=== PATIENT | female | born 1975 | race Hispanic/Latino ===

== ENCOUNTER 2023-04-05 08:20 | Emergency (ER) | payer OTHER, BC, MEDICAID, SELFPAY ==
--- NOTE | 2023-04-05 08:29 | ED.URI ---
HPI - URI/Sore Throat General Chief Complaint: Upper Respiratory Infection Stated Complaint: cough; SOB; fever Source: patient and RN notes reviewed History of Present Illness HPI Narrative: 47-year-old female presents to urgent care with complaints of a cough since yesterday. Patient states she 1st noticed it before yesterday but states it had gotten worse and is more constant. Patient reports associated low-grade fever of 100? F recently. Patient reports a sore throat and some chest soreness when she coughs. Patient states she has noticed wheezing at home. Patient states she had a COVID test yesterday which was negative. Denies any vomiting, diarrhea, ear pain, or congestion. Patient has been taking ibuprofen Tylenol. Some parts of this dictation were generated by voice recognition software and may contain typographical and/or grammatical inaccuracies. Related Data Home Medications Medication Instructions Recorded Confirmed alprazolam 1 mg tablet 1 mg PO TID PRN Anxiety 04/05/23 04/05/23 atorvastatin 20 mg tablet 20 mg PO DAILY 04/05/23 04/05/23 bupropion HCl 300 mg 24 hr tablet, 300 mg PO DAILY 04/05/23 04/05/23 extended release buspirone 30 mg tablet 30 mg PO DAILY 04/05/23 04/05/23 escitalopram oxalate 20 mg tablet 20 mg PO DAILY 04/05/23 04/05/23 ibuprofen 600 mg tablet 600 mg PO QID PRN Pain 04/05/23 04/05/23 lamotrigine 200 mg tablet 200 mg PO DAILY 04/05/23 04/05/23 oxycodone 10 mg tablet 10 mg PO QID PRN Pain 04/05/23 04/05/23 quetiapine 50 mg tablet 50 mg PO DAILY 04/05/23 04/05/23 semaglutide 0.25 mg or 0.5 mg (2 0.25 mg subcut WEEKLY 04/05/23 04/05/23 mg/3 mL) subcutaneous pen injector (Ozempic) topiramate 50 mg tablet 50 mg PO BID 04/05/23 04/05/23 Allergies Allergy/AdvReac Type Severity Reaction Status Date / Time morphine AdvReac Intermediate ITHCING Verified 04/05/23 08:25 Penicillins AdvReac Intermediate NAUSEA/VOMI Verified 04/05/23 08:25 TING Review of Systems Review of Systems: Pertinent positives and pertinent negatives per HPI. PMFSH Comments At the time of my signature, I reviewed and agree with the nursing past medical, surgical, social, and family history. There is no relevant family history pertinent to the patient complaint. Exam Narrative: GENERAL: This is a well-nourished, well-developed patient, in no apparent distress. HEAD: normocephalic, atraumatic. EYES: Sclera clear/white. Vision is grossly intact. EARS: External ears normal, auditory canals clear and without drainage, TMs normal without perforation. Hearing grossly intact. NOSE: External nose normal with no obvious nasal discharge, nares without redness, no rhinorrhea. THROAT: Mucous membranes moist, posterior pharynx clear. NECK: Neck supple, non-tender without lymphadenopathy, masses or thyromegaly. CARDIOVASCULAR: Regular rate and rhythm without murmurs, gallops, or rubs. RESPIRATORY: Clear to auscultation. Breath sounds equal bilaterally. No wheezes, rales, or rhonchi. pt has dry hacky cough often in exam room. SKIN: warm, intact with no suspicious lesions or rash, good texture and turgor. NEURO: awake, alert, and oriented to person, place and time. There were no obvious focal neurologic abnormalities. Course Course Level of Care: Express Care Visit Vital Signs Vital signs: Vital Signs Temperature 98.1 F 04/05/23 08:34 Pulse Rate 98 04/05/23 08:34 Respiratory Rate 16 04/05/23 08:34 Blood Pressure 143/85 H 04/05/23 08:34 Pulse Oximetry 98 04/05/23 08:34 Oxygen Delivery Room Air 04/05/23 08:34 Temperature 98.1 F 04/05/23 08:34 Pulse Rate 98 04/05/23 08:34 Respiratory Rate 16 04/05/23 08:34 Blood Pressure 143/85 H 04/05/23 08:34 Pulse Oximetry 98 04/05/23 08:34 Oxygen Delivery Room Air 04/05/23 08:34 Reviewed MDM - URI/Sore Throat MDM Narrative Medical decision making narrative: Take steroids as directed. May use the inhaler every 4-6 hours
[2023-04-05 08:34] VITALS: BP 143/85; PULSE 98; RESP 16; TEMP 36.7; O2SAT 98
== END 2023-04-05 08:51 | disposition home or self-care (01) ==
PROVIDERS: Emergency Provider Nurse Practitioner Family; PCP Family Medicine
DX: J40 Bronchitis, not specified as acute or chronic (principal); I48.91 Unspecified atrial fibrillation; M79.7 Fibromyalgia; M87.9 Osteonecrosis, unspecified
CPT/HCPCS: 99213; G0463

== ENCOUNTER 2024-06-21 07:22 | Outpatient (CLI) | payer OTHER, SELFPAY ==
--- NOTE | ~2024-06-21 | XR_ITS ---
EXAMINATION: XR thoracic spine 2V DATE: 06/21/2024 07:54 INDICATION: Lumbar radiculopathy. TECHNIQUE: 3 views of thoracic spine including standing views were obtained. COMPARISON: None. FINDINGS: There is 8 degrees dextrocurvature of thoracic spine. Vertebral body heights are normal. In tervertebral disc heights are normal. There are endplate osteophytes at most levels. An intrathecal c atheter is noted. IMPRESSION: 1. Mild thoracic spondylosis. Reviewed, dictated and finalized at location A.
--- NOTE | ~2024-06-21 | XR_ITS ---
EXAMINATION: XR lumbar spine 2-3V DATE: 06/21/2024 07:54 INDICATION: Lumbar radiculopathy. TECHNIQUE: 3 views of lumbar spine were obtained. COMPARISON: None. FINDINGS: There is 3 degrees levocurvature of lumbar spine. Vertebral body heights and intervertebral disc heights are normal. There is multilevel facet joint osteoarthritis, severe in lower lumbar spin e. An intrathecal catheter is noted. IMPRESSION: 1. Mild lumbar spondylosis. Reviewed, dictated and finalized at location A. IMPRESSION: 1. Mild lumbar spondylosis.
== END 2024-06-21 07:23 ==
PROVIDERS: PCP Pain Medicine Pain Medicine; Visit Provider Pain Medicine Pain Medicine
DX: M54.16 Radiculopathy, lumbar region (principal); M43.04 Spondylolysis, thoracic region; M43.06 Spondylolysis, lumbar region
CPT/HCPCS: 72070; 72100

== ENCOUNTER 2024-07-23 14:53 | Outpatient (CLI) | payer OTHER, SELFPAY ==
--- NOTE | ~2024-07-23 | XR_ITS ---
XR hip BI 2V w AP pelvis Ordering provider: Ellyn Lee, History: . Idiopathic aseptic necrosis of unspecified femur . Comparison: None. FINDINGS: BONES: No acute fracture or dislocation. Possibility of AVN in the left hip is not excluded although less likely. CT or MRI evaluation advised. HIP JOINT SPACES: Normal. SACROILIAC JOINT SPACES/LUMBAR SPINE: The sacroiliac joint spaces are normal. Mild degenerative reddy es of the visualized lower lumbar spine. PUBIC SYMPHYSIS: Normal. SOFT TISSUES: Normal. Device is seen in the left lumbar area. IMPRESSION: No acute osseous abnormality of the bilateral hips and pelvis. Possibility of AVN in the left hip cannot be excluded. Reviewed, dictated and finalized at location A.
== END 2024-07-23 14:54 | disposition home or self-care (01) ==
PROVIDERS: PCP Pain Medicine Pain Medicine; Visit Provider Physical Medicine & Rehabilitation
DX: M87.051 Idiopathic aseptic necrosis of right femur (principal); M87.052 Idiopathic aseptic necrosis of left femur
CPT/HCPCS: 73521

== ENCOUNTER 2024-08-26 14:22 | Outpatient (CLI) | payer OTHER, SELFPAY ==
--- NOTE | 2024-08-26 | ECG_ITS ---
Test Date: 2024-08-26 15:02:49 Measurements Intervals [place] Rate: 62 P: 57 ND: 144 QRS: 39 QRSD: 97 T: 35 QT: 405 QTc: 413 Interpretive Statements SINUS RHYTHM No previous ECG available for comparison Electronically Signed On 08-27-2024 09:37:38 CDT by Sandy Osborn M.D.
[2024-08-26 14:42] LABS: Basophils Absolute Auto 0.1 K/mm3 (0.0-0.1); Basophils Percent Auto 0.7 % (0.2-1.2); Eosinophils Absolute Auto 0.1 K/mm3 (0-0.3); Eosinophils Percent Auto 0.8 % (0-4.4); Hemoglobin 12.5 g/dL (12.0-15.0); Immature Granulocyte Absolute 0.01 K/mm3 (0.00-0.031); Immature Granulocyte Percent A 0.1 % (0-0.5); Lymphocytes Absolute Auto 3.11 K/mm3 (0.9-3.2); Lymphocytes Percent Auto 43.7 % (18.3-44.2); Mean Corpuscular HGB Conc 33.8 g/dl (32-36); Mean Corpuscular Hemoglobin 31.1 pg (26-34); Mean Platelet Volume 9.8 fl (7.4-10.4); Monocytes Absolute Auto 0.3 K/mm3 (0.1-0.6); Monocytes Percent Auto 4.8 % (2.6-8.5); Neutrophils Absolute Auto 3.6 K/mm3 (1.3-6.7); Neutrophils Percent Auto 49.9 % (45.5-73.1); Platelet Count Result 282 k/mm3 (150-375); Red Blood Count 4.02 M/mm3 (4.2-5.4); Red Cell Distribution Width 12.3 % (11.5-14.5); White Blood Count 7.1 K/mm3 (4.5-10.0)
[2024-08-26 14:44] LABS: Add Urine Microscopic? NO; Appearance Urine Clear (Clear); Bilirubin Urine Negative (Negative); Blood Urine Negative (Negative); Color Urine Yellow (Yellow); Glucose Urine UA Negative (Negative); Ketones Urine Trace mg/dL (Negative); Leukocyte Esterase Ur Negative LEU/UL (Negative); Nitrate Urine Negative (Negative); Protein Urine Negative (Negative); Specific Grav Ur 1.013 (1.001-1.035); Urobilinogen Urine 0.2 mg/dL (<2.0)
[2024-08-26 14:58] LABS: Alanine Aminotransferase 25 U/L (6-35); Albumin Level 4.3 g/dL (3.5-5.1); Alkaline Phosphatase 66 U/L (38-126); Anion Gap 6 mmol/L (4-12); Aspartate Amino Transferase 21 U/L (14-36); Bilirubin,Total 0.5 mg/dL (0.2-1.3); Blood Urea Nitrogen 12 mg/dL (7-17); CRP < 0.5 mg/dL (<1.0); Calcium 9.1 mg/dL (8.4-10.2); Carbon Dioxide 28 mmol/L (22-30); Chloride 103 mmol/L (98-107); Estimated Glomerular Filt Rate > 60; Glucose 109 mg/dL (65-110); Potassium 3.6 mmol/L (3.4-5.0); Sodium 137 mmol/L (137-145)
[2024-08-26 15:14] LABS: Erythrocyte Sedimentation Rate 15 mm/hr (0-20)
== END 2024-08-26 14:23 | disposition home or self-care (01) ==
LOC: ANHLAB 14:24
PROVIDERS: PCP Pain Medicine Pain Medicine; Visit Provider Anesthesiology Pain Medicine
DX: M54.50 Low back pain, unspecified (principal)
CPT/HCPCS: 36415; 80053; 81003; 85025; 85652; 86140; 93005

== ENCOUNTER 2024-11-19 11:52 | Emergency (ER) | payer OTHER, SELFPAY ==
--- NOTE | ~2024-11-19 | XR_ITS ---
XR wrist LT min 3V Ordering provider: Catrina Feldman NP History: . pain with movement to lt lateral wrist, no injury x 1-2 week . Comparison: None. FINDINGS: BONES: No acute fracture or dislocation. No definite scaphoid fracture. JOINT SPACES: Well maintained. SOFT TISSUES: Normal. IMPRESSION: No acute osseous abnormality left wrist. Reviewed, dictated and finalized at location A. UTER TECHNOLOGY TRAINER
[2024-11-19 12:03] VITALS: BP 123/82; PULSE 99; RESP 16; TEMP 37.4; O2SAT 100
--- NOTE | 2024-11-19 12:30 | ED_ITS ---
HPI - Extremity Injury (Upper) General Chief Complaint: Extremity Injury, Upper Stated Complaint: L wrist pain and sinus issues Time Seen by Provider: 11/19/24 12:30 Source: patient Mode of arrival: ambulatory Limitations: no limitations History of Present Illness HPI narrative: 49-year-old female presents with complaint of sinus congestion, pressure, postnasal drainage, sore throat, fatigue for the past 9-10 days. Afebrile. Taking pjcj-ruk-jvdrhsu medications without relief of symptoms. Also reports left wrist pain for 2 weeks. Denies injury. No numbness or tingling. Pain with movement. 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 All systems reviewed and negative except as noted above. Related Data Home Medications ?Medication ?Instructions ?Recorded ?Confirmed ?Last Taken ?Type alprazolam 1 mg tablet 1 mg PO TID PRN Anxiety 04/05/23 04/05/23 Unknown History atorvastatin 20 mg tablet 20 mg PO DAILY 04/05/23 04/05/23 Unknown History bupropion HCl 300 mg 24 hr tablet, 300 mg PO DAILY 04/05/23 04/05/23 Unknown History extended release buspirone 30 mg tablet 30 mg PO DAILY 04/05/23 04/05/23 Unknown History escitalopram oxalate 20 mg tablet 20 mg PO DAILY 04/05/23 04/05/23 Unknown History lamotrigine 200 mg tablet 200 mg PO DAILY 04/05/23 04/05/23 Unknown History oxycodone 10 mg tablet 10 mg PO QID PRN Pain 04/05/23 04/05/23 Unknown History quetiapine 50 mg tablet 50 mg PO DAILY 04/05/23 04/05/23 Unknown History semaglutide 0.25 mg or 0.5 mg (2 0.25 mg subcut WEEKLY 04/05/23 04/05/23 Unknown History mg/3 mL) subcutaneous pen injector (Ozempic) topiramate 50 mg tablet 50 mg PO BID 04/05/23 04/05/23 Unknown History Allergies Allergy/AdvReac Type Severity Reaction Status Date / Time morphine AdvReac Intermediate ITHCING Verified 11/19/24 12:21 Penicillins AdvReac Intermediate NAUSEA/VOMI Verified 11/19/24 12:21 TING Review of Systems Review of Systems: CONSTITUTIONAL: Denies fever, chills, or sweats. reports fatigue. EYES: Denies visual changes, redness, or discharge. ENT: Reports rhinorrhea, congestion, sore throat, sinus pressure. Denies otalgia. CARDIOVASCULAR: Denies chest pain, palpitations, or edema. RESPIRATORY: Denies cough or dyspnea. GASTROINTESTINAL: Denies abdominal pain, nausea, vomiting, or diarrhea. GENITOURINARY: Denies dysuria or hematuria. SKIN: Denies rash or itching. MUSCULOSKELETAL: Denies back pain, joint pain, or myalgia. Reports left wrist pain. NEUROLOGIC: Denies headache, numbness, or weakness. PSYCHIATRIC: Denies anxiety or depression. All other systems reviewed are negative, except as documented in HPI. PMFSH Comments At time of signature, agree with nursing past medical, surgical, social and family history. There is no relevant family history pertinent to the presenting complaint. Exam Narrative: GENERAL: This is a well-nourished, well-developed patient, in no apparent distress. HEAD: normocephalic, atraumatic. EYES: PERRL. Sclera clear/white. Vision is grossly intact. EARS: External ears normal, auditory canals clear and without drainage, TMs normal without perforation. Hearing grossly intact. NOSE: External nose normal with Congestion, , erythema to nares . Maxillary sinus tenderness on palpation bilaterally. THROAT: Mucous membranes moist, purulent postnasal drainage with mild erythema. No swelling or exudates. NECK: Neck supple, non-tender without lymphadenopathy, masses or thyromegaly. CARDIOVASCULAR: Regular rate and rhythm without murmurs, gallops, or rubs. RESPIRATORY: Clear to auscultation. Breath sounds equal bilaterally. No wheezes, rales, or rhonchi. SKIN: warm, Dry, intact with no suspicious lesions or rash, good texture and turgor. NEURO: awake, alert, and oriented to person, place and time. There were no obvious focal neurologic abnormalities. EXTREMITIES: No joint tenderness, effusion, or edema noted. No tenderness on palpation. Decreased range of motion due to pain. 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 Course Course Level of Care: Express Care Visit Vital Signs Vital signs: Vital Signs Temperature 37.4 C 11/19/24 12:03 Pulse Rate 99 11/19/24 12:03 Respiratory Rate 16 11/19/24 12:03 Blood Pressure 123/82 11/19/24 12:03 Pulse Oximetry 100 11/19/24 12:03 Oxygen Delivery Room Air 11/19/24 12:03 Temperature 37.4 C 11/19/24 12:03 Pulse Rate 99 11/19/24 12:03 Respiratory Rate 16 11/19/24 12:03 Blood Pressure 123/82 11/19/24 12:03 Pulse Oximetry 100 11/19/24 12:03 Oxygen Delivery Room Air 11/19/24 12:03 Reviewed MDM - Extremity Injury (Upper) MDM Narrative Medical decision making narrative: Patient is aware of diagnosis, understands and agrees to treatment plan. Anticipatory guidance given. Patient agrees to follow-up as directed and is aware of reasons to seek care at the emergency department. Portions of this record may have been created with voice recognition software Imaging Data My impression: Agree with radiologist Radiologist's impression: XR wrist LT min 3V Ordering provider: Catrina Feldman NP History: . pain with movement to lt lateral wrist, no injury x 1-2 week . Comparison: None. FINDINGS: BONES: No acute fracture or dislocation. No definite scaphoid fracture. JOINT SPACES: Well maintained. SOFT TISSUES: Normal. IMPRESSION: No acute osseous abnormality left wrist. Discharge Plan Discharge Clinical Impression: Acute bacterial sinusitis, Sprain and strain of left wrist Patient Disposition: Home, Self-Care Condition: Stable Instructions: Antibiotic Form, Sinusitis (ED) Additional Instructions: take medications as prescribed. Taking zibd-hfs-zqjwoyj antihistamine daily such as Claritin or Zyrtec. Drink at least 64 oz of water a day. Place cool mist humidifier in bedroom recently. The x-ray of your left wrist was normal. Take ibuprofen or Tylenol every 6-8 hours as needed for pain. Follow-up with your primary care physician if symptoms are not improving. Patient Language: [place] Prescriptions: New doxycycline hyclate 100 mg capsule 100 mg PO BID 7 Days Qty: 14 0RF methylprednisolone [Medrol (Tc)] 4 mg tablets,dose pack See Rx Instructions PO .COMPLEX Qty: 21 0RF Rx Instructions: orally per package directions fluticasone propionate [Flonase Allergy Relief] 50 mcg/actuation spray,suspension 1 spray intranasal BID Qty: 16 0RF Rx Instructions: administer into each nostril No Action atorvastatin 20 mg tablet 20 mg PO DAILY lamotrigine 200 mg tablet 200 mg PO DAILY alprazolam 1 mg tablet 1 mg PO TID PRN (Reason: Anxiety) buspirone 30 mg tablet 30 mg PO DAILY escitalopram oxalate 20 mg tablet 20 mg PO DAILY bupropion HCl 300 mg tablet extended release 24 hr 300 mg PO DAILY topiramate 50 mg tablet 50 mg PO BID quetiapine 50 mg tablet 50 mg PO DAILY oxycodone 10 mg tablet 10 mg PO QID PRN (Reason: Pain) Ozempic 0.25 mg or 0.5 mg (2 mg/3 mL) pen injector 0.25 mg SUBCUT WEEKLY albuterol sulfate 90 mcg/actuation HFA aerosol inhaler 2 puff inhalation QID PRN (Reason: shortness of breath or wheezing) Qty: 8.5 0RF Follow-up/Referrals: Dean,CRISTOPHER Ralph [Primary Care Provider] - Time of Disposition: 13:19
== END 2024-11-19 13:25 | disposition home or self-care (01) ==
PROVIDERS: Emergency Provider Nurse Practitioner Family; PCP Physician Assistant
DX: J01.90 Acute sinusitis, unspecified (principal); B96.89 Other specified bacterial agents as the cause of diseases classified elsewhere; S63.502A Unspecified sprain of left wrist, initial encounter; S66.912A Strain of unspecified muscle, fascia and tendon at wrist and hand level, left hand, initial encounter; X58.XXXA Exposure to other specified factors, initial encounter
CPT/HCPCS: 73110; 99213; G0463

== ENCOUNTER 2024-12-31 14:41 | Outpatient (CLI) | payer OTHER, SELFPAY ==
--- NOTE | ~2024-12-31 | MM_ITS ---
EXAMINATION: MM screening harry BI w jorge HISTORY: Screening TECHNIQUE: Craniocaudal and mediolateral oblique 3-D tomosynthesis images were obtained and synthetic 2-D images were generated. CAD analysis was submitted and interpreted. COMPARISON: No prior mammogram is available for comparison at this institution. BREAST PARENCHYMAL COMPOSITION: Not dense: There are scattered areas of fibroglandular density. FINDINGS: There is no evidence of suspicious mass, calcification, or architectural distortion to sugg est malignancy in either breast. There has been no suspicious interval change. IMPRESSION: 1. No mammographic evidence of malignancy. 2. Recommend routine screening mammography in one year. BI-RADS Category 1: Negative Reviewed, dictated and finalized at location B. MASTER
== END 2024-12-31 14:42 | disposition home or self-care (01) ==
LOC: MICIMG 14:43
PROVIDERS: PCP Physician Assistant; Visit Provider Physician Assistant
DX: Z12.31 Encounter for screening mammogram for malignant neoplasm of breast (principal)
CPT/HCPCS: 77063; 77067

== ENCOUNTER 2025-04-30 09:42 | Outpatient (CLI) | payer OTHER, SELFPAY ==
--- OUTSIDE RECORDS SUMMARY | 2025-04-30 10:08 | XMS_ITS | Patient Health Record ---
Author Organization [facility] Address [address] [place] [address] Care Team Providers Care Software Design Manager Name Role Phone Ade Avalos Primary Care Provider [phone] Allergies Allergen (clinical drug ingredient) Drug/Non Drug Allergy documented on EMR Reaction Allergy Type Onset Date Status morphine Morphine Sulfate Unknown Drug Allergy Active Penicillin Unknown Drug Allergy Active Reason For Referral No Information Medications Medication SIG (Take, Route, Frequency, Duration) Notes Start Date End Date Status Losartan Potassium 100 MG 1 tablet Orally Once a day Unknown Ozempic (2 MG/DOSE) 8 MG/3ML as directed Subcutaneous Unk nown oxyCODONE HCl 10 MG 1 tablet Orally ever y 6 hrs Unknown Omeprazole 40 MG 1 capsule 30 minutes before morning meal Orally Once a day Unknown SUMAtriptan Succinate 6 MG/0.5ML as directed Subcutaneous Unk nown Caplyta 42 MG 1 capsule Orally Onc e a day for 30 days Active ALPRAZolam 1 MG 1 tablet as needed O rally three times a day Unknown Lexapro 20 MG 1 tablet Orally Once a day for 30 days Active busPIRone HCl 30 MG 1 tablet Orally Once a day for 30 days Active LaMICtal 200 MG 1 tablet Orally Once a day for 30 days Active Wellbutrin XL 300 MG 1 tablet in the mor carlos Orally Once a day for 30 days Active Social History Tobacco Use: Social History Observation Description Date Details (start date - stop date) Current Smoker NA - NA Dont use, Tobacco Use/Smoking Question Answer Notes Are you a current every day smoker Additional Findings: Tobacco User Moderate cigar ette smoker (10-19 cigs/day) Problems Problem Type SNOMED Code ICD Code Onset Dates Problem Status W/U Status Risk Notes Problem Bipolar 1 disorder (671610798) Bipolar 1 disorder (F31.9) Active confirmed Problem Panic disorder (566052983) Panic disorder (F41.0) Active confirmed Problem Post traumatic stress disorder (PTSD) (F43.10) Active confirmed Plan Of Treatment No Information Insurance Providers Payer Name Payer Address Payer Phone Subscriber Number Group Number Insured Name Patient Relationship to Insured Coverage Start Date Coverage End Date [facility] [address] [place] [address] [id number] Diya See Self - patient is the insured 3 3 [facility] [address] [place] [address] [id number] Diya See Self - patient is the insured 3 MED[place] [address] [place] [address] [id number] Diya See Self - patient is the insured 3 MEDICAID TELE[employer] [facility] [place] [place] [address] [id number] Diya See Self - patient is the insured 3 Medical (General) History Medical History History ICD Code fibromyalgia gastroesophageal reflux disease (GERD) prediabetic migraine headaches Surgical History Surgery Date(Month/Year) hystorectomy 2009 ducts removed from breasts 2007 pain pump 2007 Hospitalization History Reason Date(Month/Year) child x3 accidental overdose from pain pump 08/31 21
--- OUTSIDE RECORDS SUMMARY | 2025-04-30 10:09 | XMS_ITS | CONTINUITY OF CARE DOCUMENT ---
Author Name ovidio nolan Address Unknown Organization [facility] Address [address] [place] [address] Phone [phone] Care Team Providers Care Chemical Dependency Therapist Name Role Phone Samm LINDSEY, Ibis Unavailable [phone] PRICILLA MIGUEL MD Unavailable [phone] PROBLEMS Condition Status Date Provider Notes Family hx of heart disease active Nick Ahme dzai Sleep disorder active Nick Ahmedzai Migraines active Nick Ahmedzai Obesity active Nick Ahmedzai Atrial fibrillation, paroxysmal active Nick Ahmedzai Hyperlipidemia active Nick Ahmedzai Tobacco abuse active Nick Ahmedzai Fibromyalgia active Nick Ahmedzai Chest pain active Nick Ahmedzai Avascular necrosis, hip active Nick Ahmedza i ENCOUNTERS Date Type Provider Location Encounter Diag nosis 6 - 6 In-person encounter Office Visit Ibis Quijano MD [place] [facility] Atrial fibrillation, paroxysmalHyperlipidemiaTobacco abuseFibromyalgiaChest painAvascular necrosis, hip VITAL SIGNS Date Observation Value Provider Body Mass Index (Ratio) 34.38 kg/m2 Max Quijano MD blood pressure, diastolic -1 mm[Hg] Brenda nkLogic blood pressure, systolic 141 mm[Hg] Gracy kLogjenni blood pressure, diastolic 86 mm[Hg] St julio c Walker blood pressure, systolic 141 mm[Hg] Kale Wlaker oxygen saturation, oximetry 97 % Katerine Walker pulse rate 86 /min Katerine Walker respiratory rate E&M 18 /min Katerine Chao terri height E&M 62 [in_i] Katerine Aaron weight E&M 188 [lb_av] Katerine Aaron ALLERGIES Allergy Name Onset Date Reaction Criticality Status MORPHINE High Criticality active PENICILLIN High Criticality active HISTORY OF MEDICATION USE Medication Status Instructions Dates Provider Indications Com ments oxycodone 10 mg tablet active TAKE 1 TABLET BY MOUTH FOUR TIMES DAILY FOR CHRONIC PAIN Nick Gee Ozempic 0.25 mg or 0.5 mg (2 mg/3 mL) pen injector active Katerine Walker topiramate 50 mg tablet active Katerine Walker quetiapine 50 mg tablet active Katerine Walker bupropion HCl 300 mg tablet extended release 24 hr active Katerine Walker escitalopram oxalate 20 mg tablet active Katerine Walker alprazolam 1 mg tablet active Katerine Walker buspirone 30 mg tablet active Katerine Walker lamotrigine 200 mg tablet active Katerine Walker atorvastatin 20 mg tablet active Katerine Walker SOCIAL HISTORY Date Observation Value Provider smoking history, total pack/day 5cigs Katerine Aaron cigarette use yes Katerine Aaron smoking status Current every day smoker S rex Aaron social history reviewed E&M revi ewed - no changes required Nick Gee INSURANCE PROVIDERS Payer name Policy type / Coverage type [place] red republican ID [facility] [employer] insurance company 9 [id number] [facility] [facility] Medicaid 3 [id number] ADVANCE DIRECTIVES Name Date DISCUSSED - NO DECISION MADE TREATMENT PLAN Date Name Performer [id number],Nick Aguilar i [id number] Riaz Ahmedza i [id number] Riaz Ahmedza i [id number],S, Nick med i [id number],S, Nick medza i [facility] Card[facility] Cardiology Count Includes [facility] Date Name Sleep Study Home CT, Coronary Calcium Score Stress Regadenoson Complete Echo HISTORY OF PROCEDURES Procedure Date Procedure Name Provider Procedure Notes S tatus EKG Ibis Quijano MD completed
--- OUTSIDE RECORDS SUMMARY | 2025-04-30 10:09 | XMS_ITS | Clinical Summary ---
Author Organization [facility] Address [address] [place] [address] Care Team Providers Care Juvenile Justice Specialist Name Role Phone Khalida Clay MD Primary Care Provider [phone] Source Comments [facility],non-owned Affiliates and Associated Physician Practices is amultiple site organization consisting of ambulatory clinics and hospital sitesin [place], [place], [place] and [place]. This disclosure is being madepursuant to the Care Everywhere program and may not contain all information available regarding this patient. Last updated 18.[facility] Social History Tobacco Use Types Packs/Day Years Used Date Smoking Tobacco: Never Assessed Comments Unknown Sex and Gender Information Value Date Recorded Sex Assigned at Not on file Legal Sex Female 3:46 PM CDT Gender Identity Not on file Sexual Orientation Not on file Last Filed Vital Signs Vital Sign Reading Time Taken Comments Blood Pressure - - Pulse - - Temperature - - Respiratory Rate - - Oxygen Saturation - - Inhaled Oxygen Concentration - - Weight 69.4 kg (153 lb) 09/25/2016 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 Height 157.5 cm (5' 2) 09/25/2016 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 Body Mass Index 27.98 09/25/2016 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 Plan of Treatment Health Maintenance Due Date Last Done Comments COLOGUARD (AGES 45-75) - COL ON CA SCREENING 1974 COLON MONITORING 1974 COLONOSCOPY - COLON CA SCREENING 1974 CT COLONOGRAPHY - COLON CA SCREENING 1974 Colorectal Cancer Screening 1974 FIT - COLON CA SCREENING 1974 FLEX SIG - COLON CA SCREENING 1974 LIPID TESTING 1974 MAMMOGRAM 1974 HIV SCREENING 1989 HEPATITIS C SCREENING 06/13/1992 DTAP/TDAP/TD VACCINES (1 - Tdap) 1993 HEPATITIS B VACCINE (1 of 3 - 19+ 3-dose series) 1993 PNEUMOCOCCAL VACCINE 50+ (1 of 1 - PCV) 2024 ZOSTER VACCINE (1 of 2) 2024 COVID-19 VACCINE (1 - 2023-2 5 season) 2024 DEPRESSION SCREENING 11/12/2024 INFLUENZA VACCINE (Season Ended) 2025 HIB VACCINE Aged Out No longer eligi ble based on patient's age to complete this topic HPV VACCINE Aged Out No longer eligi ble based on patient's age to complete this topic MENINGOCOCCAL (Group B) VACC INE SHARED DECISION-MAKING Aged Out No longer eligibl e based on patient's age to complete this topic MENINGOCOCCAL GROUPS A/C/Y/W VACCINE Aged Out No longer eligible b ased on patient's age to complete this topic Insurance [employer] Care Teams Juvenile Justice Specialist Relationship Specialty Start Date End Date Khalida Clay MD [address] [place] [address] [address] [place] [id number] PCP - General Family Medicine 09/25/16
[2025-04-30 10:30] LABS: Basophils Absolute Auto 0.1 K/mm3 (0.0-0.1); Basophils Percent Auto 0.7 % (0.2-1.2); Eosinophils Absolute Auto 0.1 K/mm3 (0-0.3); Eosinophils Percent Auto 1.2 % (0-4.4); Hematocrit 39.7 % (37.0-47.0); Hemoglobin 13.1 g/dL (12.0-15.0); Immature Granulocyte Absolute 0.01 K/mm3 (0.00-0.031); Immature Granulocyte Percent A 0.1 % (0-0.5); Lymphocytes Absolute Auto 2.24 K/mm3 (0.9-3.2); Lymphocytes Percent Auto 33.4 % (18.3-44.2); Mean Corpuscular Hemoglobin 30.3 pg (26-34); Mean Corpuscular Volume 91.7 fl (80-100); Monocytes Absolute Auto 0.3 K/mm3 (0.1-0.6); Monocytes Percent Auto 4.5 % (2.6-8.5); Neutrophils Percent Auto 60.1 % (45.5-73.1); Platelet Count Result 308 k/mm3 (150-375); Red Blood Count 4.33 M/mm3 (4.2-5.4); Red Cell Distribution Width 13.2 % (11.5-14.5); White Blood Count 6.7 K/mm3 (4.5-10.0)
[2025-04-30 10:49] LABS: Iron 79 ug/dL (37-170)
[2025-04-30 11:12] LABS: Percent Iron Saturation 23 % (20-50)
[2025-04-30 12:09] LABS: Folic Acid 4.9 ng/mL (2.76->20)
== END 2025-04-30 09:43 | disposition home or self-care (01) ==
LOC: ANHLAB 09:42
PROVIDERS: Visit Provider Nurse Practitioner Family
DX: R61 Generalized hyperhidrosis (principal); R53.83 Other fatigue
CPT/HCPCS: 36415; 82607; 82728; 82746; 83540; 83550; 84443; 85025

== ENCOUNTER 2025-05-07 07:39 | Outpatient (NON) | payer OTHER, SELFPAY ==
--- NOTE | 2025-05-07 | S_PTH ---
PATIENT: Diya See LOC: ANAB #:[id number] AGE/SX: 49/F ROOM: RE05/07/[address]: Alhaji Urban MD : 1975 BED: DIS: 05/07/2025 SPEC #: [id number] RECD: 05/08/25 08:27 STATUS: SHIVANI REQ #: [id number] MAXINE: 05/07/25 00:[address]: Alhaji Urban DEPT: [facility] Surgical RECD BY: Jenise Ortiz ENTERED: 05/08/25 08:29 SP TYPE: Surgical OTHR DR: Mick Moran, PA Tissues: A - Skin Procedures: Hematoxylin and Eosin Stain Gross and Microscopic Level 4
== END 2025-05-07 07:40 | disposition home or self-care (01) ==
LOC: ANHLAB 05-08 07:39
PROVIDERS: PCP Physician Assistant; Visit Provider Plastic Surgery
DX: M65.4 Radial styloid tenosynovitis [de Quervain] (principal)
CPT/HCPCS: 88305

== ENCOUNTER 2025-05-07 08:10 | Day surgery (SDC) | payer OTHER, SELFPAY ==
--- NOTE | 2025-05-07 07:07 | P.OP_ITS ---
Procedure Note - Detailed Date of Procedure 05/07/25 Pre-op Diagnosis Left dequervain's Tenosynovitis Post-op Diagnosis Same Procedure Performed left first extensor compartment release and extensor tenosynovectomy Surgeon Alhjai Urban MD Photographic Technician erica jean baptiste pa-c Anesthesia MAC Description of Procedure INFORMED CONSENT: The patient was seen and examined and marked in the pre-op area.? The patient signed the consent form. PROCEDURE IN DETAIL:The patient taken back to OR on the stretcher in supine position. Time out performed with anesthesia, surgeon and staff agreeing on patient's name site and surgery to be performed SCDs were placed on the lower extremities and inflated. A tourniquet was placed on {left} upper extremity and antibiotics given IV After anesthesia administered sedation I injected {5}cc 1%lido with epi and 0.5% marcaine plain at the operative site The?{left upper extremity}?was prepped and draped in sterile fashion the??{left upper extremity} was? exsanguinated with Esmarch bandage and tourniquet inflated to 250mmHg I proceeded with making a longitudinal incision over the left 1st extensor compartment through skin and dermis with a 15 blade scalpel. Littler scissors were used to spread down to the extensor sheath. I made an incision on the dorsal aspect of the sheath with a 15 blade scalpel initially. Littler scissors were then used to spread above and below the sheath proximally and distally completing the transection entirely. Ragnell retractor was used to withdrawn examine the APL and EPB tendons which were noted to have multiple slips of each tendon. No sub sheaths were identified. There was a notable amount of synovitis near the proximal aspect for which I performed tenosynovectomy and sent this to pathology. I irrigated with normal saline. Closure with 3-0 Vicryl for dermis and 4-0 Monocryl for subcuticular closure. A dressing of Dermabond, 4x4, adriana, and an jennifer bandage was applied after the tourniquet was let down noting the hand was warm and well perfused. The patient was then awaken from anesthesia and transferred to the recovery room in stable condition.? Complications - none EBL- 0cc Disposition - home in stable conditions Erica Jean Baptiste PA-C was essential for positioning, retraction, closure and dr essing placement [facility] - Charge Forward: Surgery Billing ([id number] same for erica adding )
--- NOTE | 2025-05-07 07:07 | WPDHPUPDATE1 ---
History and Physical Update Update Date/Time: 05/07/25 07:07 Patient seen and examined in pre-operative holding area. No interval change in medical history or symptoms. Patient recalls previous discussion of benefits and alternatives to procedure. Continues to desire to proceed with left first extensor compartment release . Reviewed procedure, post-op expectations and risks including but not limited to bleeding, infection, injury to tendon/nerve/vessel, decreased hand function, stiffness, RSD, no change or worsening of symptoms. I discussed the possible use of assistants and their participation in the case. Patient stated understanding and signed the consent form wishing to proceed.
[2025-05-07 09:02] VITALS: BP 134/82; PULSE 70; RESP 16; TEMP 36.6; O2SAT 100
[2025-05-07 09:04] VITALS: BMI 27.4
[2025-05-07] MEDS: LACTATED RINGERS 1,000 ML 30 ML IV CONT (09:08)
--- NOTE | 2025-05-07 10:13 | WPDANESEPP ---
Anes - Eval Pre Procedure Procedure: Operation Date: 05/07/25 10:00 Proposed Procedures p Left de Quervain's Release - Alhaji Urban MD Date/Time: 05/07/25 10:13 Pre Op Diagnosis: Left Radial Styloid Tenosynovitis Patient Data Age: 49 Gender: F Height: 1.57 m Weight: 68.1 kg Last Vital Signs Temp 98 F 05/07/25 09:02 Pulse 70 05/07/25 09:02 Resp 16 05/07/25 09:02 BP 134/82 05/07/25 09:02 Pulse Ox 100 05/07/25 09:02 O2 Del Method Room Air 05/07/25 09:02 Allergies Allergy/AdvReac Type Severity Reaction Status Date / Time morphine AdvReac Intermediate ITHCING Verified 05/07/25 08:41 Penicillins AdvReac Intermediate NAUSEA/VOMI Verified 05/07/25 08:41 TING Home Medications ?Medication ?Instructions ?Recorded ?Confirmed ?Type albuterol sulfate 90 mcg/actuation 2 puff inhalation QID PRN 04/05/23 04/29/25 Rx aerosol inhaler shortness of breath or wheezing #8.5 grams oxycodone 10 mg tablet 10 mg PO QID PRN Pain 04/05/23 05/07/25 History dextroamphetamine-amphetamine 10 10 mg PO DAILY 04/21/25 05/07/25 History mg tablet dextroamphetamine-amphetamine ER 15 mg PO DAILY 04/21/25 05/07/25 History 15 mg 24hr capsule,extend release hydroxyzine HCl 10 mg tablet 10 mg PO TID PRN anxiety 04/21/25 05/07/25 History ibuprofen 800 mg tablet 800 mg PO Q6-8H PRN pain 04/21/25 05/07/25 History ferrous sulfate 325 mg (65 mg 325 mg PO DAILY #30 tabs 04/30/25 05/07/25 Rx iron) tablet,delayed release Patient hx anesthesia problems: none Family hx anesthesia problems: none Results Review: All pre-operative results and documents have been reviewed as part of the pre-operative evaluation. [facility] Past Medical History Medical History GERD (gastroesophageal reflux disease) HLD (hyperlipidemia) Migraine Depression HTN (hypertension) ADHD Social History Social History Smoking packs per day: 0.25 Smoking cigarettes per day: 5.0 Years smoked: 35 Smoking pack-years: 8.75 Smoking status: Current every day smoker Tobacco type: cigarettes Alcohol intake: never Substance use: current Substance use type: marijuana Other substance usage details: DAILY SMOKED Last use: 04-21-25 Living arrangements: with family Spiritual care concerns: No Comments asa2 Exam Day of Procedure 05/07/25 10:13 Heart: regular rate and rhythm Lungs: clear to auscultation Airway: Mallampati scale class 1 Neurological: alert and oriented
[2025-05-07] MEDS: ceFAZolin SODIUM 2 GM/20 ML SW SYRINGE IV PUSH (10:41)
[2025-05-07] MEDS: LIDO 1%/EPINEPHRINE 1:100,000 20 ML VIAL 5 ML INFILTRATE (10:50)
[2025-05-07] MEDS: BUPivacaine HCL 0.5% PF 30 ML VIAL 5 ML INFILTRATE (11:02)
[2025-05-07 11:10] VITALS: BP 112/65; PULSE 86; RESP 16; O2SAT 99
[2025-05-07 11:40] VITALS: BP 115/77; PULSE 69; RESP 18; O2SAT 100
== END 2025-05-07 11:45 | disposition home or self-care (01) ==
PROVIDERS: PCP Physician Assistant; Visit Provider Plastic Surgery
PROC: (CPT 25118; principal; 2025-05-07 10:00)
DX: M65.4 Radial styloid tenosynovitis [de Quervain] (principal)
CPT/HCPCS: 25118

== ENCOUNTER 2025-07-08 07:54 | Outpatient (CLI) | payer OTHER, SELFPAY ==
--- OUTSIDE RECORDS SUMMARY | 2025-07-08 07:58 | XMS_ITS | Clinical Summary ---
Author Organization [facility] Address [address] [place] [address] Care Team Providers Care Flat Locker Name Role Phone Khalida Clay MD Primary Care Provider [phone] [facility],non-owned Affiliates and Associated Physician Practices is amultiple site organization consisting of ambulatory clinics and hospital sitesin [place], [place], [place] and [place]. This disclosure is being madepursuant to the Care Everywhere program and may not contain all information available regarding this patient. Last updated 18.[facility] Social History Tobacco Use Types Packs/Day Years [...] 69.4 kg (153 lb) 09/25/2016 11:45 AM STRANNER Height 157.5 cm (5' 2) 09/25/2016 11:45 AM STRANNER Body Mass Index 27.98 09/25/2016 11:45 AM STRANNER Plan of Treatment Health Maintenance Due Date [...] of 3 - 19+ 3-dose series) 1993 PAP SMEAR 1995 PNEUMOCOCCAL VACCINE 50+ (1 of 1 - PCV) 2024 ZOSTER VACCINE (1 of 2) 2024 COVID-19 VACCINE (1 - 2023-2 5 season) 2024 DEPRESSION SCREENING 11/12/2024 INFLUENZA VACCINE (#1) 2025 HIB VACCINE Aged Out No longer [...] patient's age to complete this topic Insurance [facility] SELF PAY NO INSURANCE Member Subscriber Plan / Payer (Ef fective for All Dates) Name:Diya See Member ID:Not on file Relation to Subscriber:Not on file Name:DIYA SEE Subscriber ID:Not on file (Home) Address: [address] [place] [address] Payer ID:Not on file Group ID:Not on file Type:Self Pay Address: [facility] Care Teams Flat Locker Relationship Specialty Start Date End Date Khalida Clay MD [address] [place] [address] [address] [place] [address] PCP - General Family Medicine 09/25/16
--- OUTSIDE RECORDS SUMMARY | 2025-07-08 07:58 | XMS_ITS | Patient Health Record ---
Author Organization [facility] Address [address] [place] [address] Care Team Providers Care Nurse Navigator Name Role Phone Ade Avalos Primary Care Provider Allergies Allergen (clinical drug ingredient) Drug/Non Drug [...] MG 1 capsule Orally Onc e a day; Duration: 30 days Active ALPRAZolam 1 MG 1 tablet as needed O rally three times a day Unknown Lexapro 20 MG 1 tablet Orally Once a day; Duration: 30 days Active busPIRone HCl 30 MG 1 tablet Orally Once a day; Duration: 30 days Active LaMICtal 200 MG 1 tablet Orally Once a day; Duration: 30 days Active Wellbutrin XL 300 MG 1 tablet in the mor carlos Orally Once a day; Duration: 30 days Active Social History Tobacco Use: [...] Status Risk Notes Problem Bipolar 1 disorder (174131766) Bipolar 1 disorder (F31.9) Active confirmed Problem Panic disorder (758865178) Panic disorder (F41.0) Active confirmed Problem Posttraumatic stress disorder (67730435) Post traumatic stress disorder (PTSD) (F43.10) Active confirmed Plan Of Treatment No Information Insurance Providers Payer Name Payer Address Payer Phone Subscriber Number Group Number Insured Name Patient Relationship to Insured Coverage Start Date Coverage End Date [facility] [address] [place] [address] [id number] Diya See Self - patient is the insured 3 3 [facility] [address] [place] [address] [id number] Diya See Self - patient is the insured 3 MED[place] [address] [place] [address] [id number] Diya See Self - patient is the insured 3 MEDICAID [employer] [facility] [place] [place] [address] [id number] Diya See Self - patient is the insured 3 Medical (General) History Medical History History ICD Code fibromyalgia gastroesophageal reflux disease (GERD) prediabetic migraine headaches Surgical History Surgery Date(Month/Year) hystorectomy 2009 ducts removed from breasts 2008 pain pump 2007 Hospitalization History Reason Date(Month/Year) child x3 accidental overdose from pain pump 08/31 21
--- NOTE | 2025-08-03 09:51 | WPDHOMESLEEP ---
Sleep Study - Home Unattended Date of Study: 07/08/25 Ordering Provider: Renan Jade APRN Interpreting Provider: Hiral Centeno, DO Home Sleep Study Type: Watch PAT Height: 1.57 m Weight: 67.132 kg Body Mass Index: 27.1 Neck Circumference (inches): 13 [place]: 11 Reason for Sleep Study Daytime hypersomnia Sleep History The patient is a 50-year-old female that had a sleep study ordered by the pulmonary group for evaluation of sleep apnea. The patient rarely awakens from sleep short of breath. She denies awakening at night with heartburn, belching or cough. She constantly snores loudly enough that others complain. She constantly has trouble sleeping when she has a cold. She rarely wakes up gasping for air throughout the night. She rarely has breathing problems at night observed by herself or others. She constantly sweats excessively at night. She denies having heart palpitations or irregular heartbeats during the night. She rarely falls asleep during the day but never while driving. She denies sleep paralysis, cataplexy and hypnagogic/ hypnopompic hallucinations. She occasionally has trouble at school or work due to sleepiness. She denies feeling afraid of going to sleep. She occasionally has nightmares. She occasionally remembers her dreams. She constantly has thoughts racing through her mind. She rarely feels sad or depressed. She constantly has anxiety. She constantly has muscular tension. She occasionally notices parts of her body jerk. She denies kicking during the night. She denies having crawling and aching feelings in her legs and denies having leg pain during the night. She constantly grinds her teeth during sleep and constantly awakens with morning jaw pain. She is constantly bothered by pain during the day and occasionally awakened by pain during the night. She constantly wakes up feeling stiff in the morning. She constantly wakes up with sore or achy muscles. She constantly wakes up with pain in the neck, spine and other joints. She goes to bed between 8-11 p.m. every night. It can take several hours for her to fall asleep. She wakes up 1-4 times throughout the night to urinate is able to fall back asleep within a few minutes. She wakes up at 5:00 a.m. on weekdays and between 5-530 a.m. on the weekends. She typically gets 48 hours of sleep per night. She will stay in bed for a few minutes after waking up in the morning. She currently lives with her son and his partner. She denies consuming any caffeinated beverages within 2 hours of bedtime. She denies engaging in physical exercise before bedtime. She will watch television before falling asleep. She denies taking naps in afternoon or the evening. She consumes 3 caffeinated sodas per day. She smokes 1/4 of a pack of cigarettes per day. She denies alcohol use. She does use cannabis. [facility] Past Medical History Medical History GERD (gastroesophageal reflux disease) HLD (hyperlipidemia) Migraine Depression HTN (hypertension) ADHD Social History Social History Smoking packs per day: 0.25 Smoking cigarettes per day: 5.0 Years smoked: 35 Smoking pack-years: 8.75 Smoking status: Current every day smoker Tobacco type: cigarettes Alcohol intake: never Substance use: current Substance use type: marijuana Other substance usage details: DAILY SMOKED Last use: 04-21-25 Living arrangements: with family Spiritual care concerns: No Medications Home Medications ?Medication ?Instructions ?Recorded ?Confirmed ?Type albuterol sulfate 90 mcg/actuation 2 puff inhalation QID PRN 04/05/23 04/29/25 Rx aerosol inhaler shortness of breath or wheezing #8.5 grams oxycodone 10 mg tablet 10 mg PO QID PRN Pain 04/05/23 05/07/25 History dextroamphetamine-amphetamine 10 10 mg PO DAILY 04/21/25 05/07/25 History mg tablet dextroamphetamine-amphetamine ER 15 mg PO DAILY 04/21/25 05/07/25 History 15 mg 24hr capsule,extend release hydroxyzine HCl 10 mg tablet 10 mg PO TID PRN anxiety 04/21/25 05/07/25 History ibuprofen 800 mg tablet 800 mg PO Q6-8H PRN pain 04/21/25 05/07/25 History ferrous sulfate 325 mg (65 mg 325 mg PO DAILY #30 tabs 04/30/25 05/07/25 Rx iron) tablet,delayed release Sleep Procedure The sleep study was completed using [id number] a technically adequate device with seven channels: peripheral arterial tone, actigraphy, body position, snore, respiratory movement, pulse oximetry, sleep staging, and heart rate. Prior to using the device, the patient received verbal and written instructions for its application and was provided with the help desk phone number for additional telephonic instruction with 24-hour availability of qualified personnel to answer questions. The study was scored using CMS guidelines. Sleep Architecture The total recording time is 6 hrs, 54 min. The total sleep time is 5 hrs, 6 min. Sleep latency is 22 minutes. REM latency is 96 minutes. The patient had 11 episodes of waking. Sleep architecture shows 21.5% deep sleep, 60.7% light sleep, and (as % Total Sleep Time) showed NREM (Light 60.7%; Deep 21.5%), and a 17.8% stage REM. The patient spent 7.0% of total sleep time in the supine position. Sleep efficiency was 73.91. Respiratory Analysis The overall AHI (pAHI 4%:) is 1.6. The overall AHI (pAHI 3%:) is 2.2. The central AHI is 0.0. The AHI was 0.3 in NREM and 12.4 in REM sleep. The AHI was 0.0 in Supine and 2.3 in Non-supine sleep. Percent of [place] respirations is 0.0. Oximetry Data The oxygen desaturation index (NIHARIKA 4%:) is 1.4. The mean saturation is 93%, and the lowest saturation is 90%. Time spent with saturation < 88% is 0.0 minutes. Snoring Profile Snoring average intensity is 43 dB. The patient snored above 45 decibels for 78.6 minutes, 25.6% of sleep time. Cardiac Profile The average pulse rate is 68 beats per minutes. The lowest pulse rate is 49 bpm. The highest pulse rate reported is 103 bpm. Atrial fibrillation was not detected. Premature beats occur <0.1 per minute. Assessment and Plan Assessment and Plan (1) Sleep disturbances: Code(s): G47.9 - Sleep disorder, unspecified Status: Acute Assessment and Plan: The patient had an overall AHI of 1.6 with desaturation down to 90%. This is not consistent with sleep-disordered breathing. Due to the patient's excessive daytime sleepiness, further evaluation is warranted. I recommend that the patient have a split study with the use of a hypnotic to ensure we obtain enough sleep data. Data The data obtained during this sleep study is adequate for interpretation. Certification This sleep study has been reviewed by a board certified sleep medicine physician.
[2025-08-04 14:02] VITALS: BMI 27.1
== END 2025-07-09 11:52 | disposition home or self-care (01) ==
LOC: ANHCSM 07:54
PROVIDERS: PCP Physician Assistant; Visit Provider Nurse Practitioner Family
DX: G47.19 Other hypersomnia (principal)
CPT/HCPCS: 95800

== ENCOUNTER → 2025-10-22 07:52 | Outpatient (CLI) | payer OTHER, SELFPAY | PROVIDERS: PCP Physician Assistant; Visit Provider Nurse Practitioner Family | DX: G47.19 Other hypersomnia (principal) | CPT/HCPCS: 95810 ==

== ENCOUNTER 2025-11-10 12:56 | Outpatient (CLI) | payer OTHER, SELFPAY ==
--- NOTE | ~2025-11-10 | MR_ITS ---
EXAMINATION: MR lumbar spine wo con DATE: 11/10/2025 13:33 INDICATION: Low back pain. TECHNIQUE: Magnetic resonance imaging (MRI) of the lumbar spine was performed without intravenous contrast. COMPARISON: Lumbar spine radiographs 06/21/2024 FINDINGS: There is 3 mm anterolisthesis of L4 on L5. Vertebral body heights are normal. Intervertebral disc heights are normal. The distal spinal cord signal intensity is normal. The conus medullaris is at L1. The following disc levels are specifically discussed: L1-L2: The disc does not extend beyond the endplate margin. There is mild bilateral facet joint osteoarthritis. There is no neural foraminal stenosis. There is no central canal stenosis. L2-L3: There is a left foraminal protrusion. There is mild bilateral facet joint osteoarthritis. There is mild left neural foraminal stenosis. There is no central canal stenosis. L3-L4: The disc is bulging. There is severe bilateral facet joint osteoarthritis. There is mild bilateral neural foraminal stenosis. There is mild central canal stenosis. L4-L5: The disc is bulging. There is severe bilateral facet joint osteoarthritis. There is mild bilateral neural foraminal stenosis. There is mild central canal stenosis. L5-S1: The disc is bulging. There is severe bilateral facet joint osteoarthritis. There is mild bilateral neural foraminal stenosis. There is mild central canal stenosis. IMPRESSION: 1. Mild lumbar spondylosis. Reviewed, dictated and finalized at location E. SYSTEMS WORKER IMPRESSION: 1. Mild lumbar spondylosis.
== END 2025-11-10 12:57 | disposition home or self-care (01) ==
LOC: MICIMG 12:57
PROVIDERS: PCP Internal Medicine; Visit Provider Nurse Practitioner Family
DX: M47.816 Spondylosis without myelopathy or radiculopathy, lumbar region (principal)
CPT/HCPCS: 72148

== ENCOUNTER 2025-11-10 12:58 | Outpatient (CLI) | payer OTHER, SELFPAY ==
--- NOTE | ~2025-11-10 | CT_ITS ---
EXAMINATION:CT lung screening DATE: 11/10/2025 13:11 INDICATION: Nicotine dependence. TECHNIQUE: Computed tomography (CT) of the chest was performed without intravenous contrast. Automated exposure control and iterative reconstruction technique were employed. The dose-length product (DLP) was 71.24 mGy-cm. COMPARISON: None. FINDINGS: The lungs demonstrate minimal atelectasis on the right. Calcified bilateral lung nodules are consistent with old granulomatous disease. There is a 2 mm nodule in left upper lobe. No pleural effusion. The heart size is normal. No pericardial effusion. An intrathecal catheter is noted. There is moderate thoracic spondylosis. IMPRESSION: 1. Lung-RADS category 2: Benign appearance or behavior. Continue annual screening with noncontrast low-dose chest CT in 12 months. Reviewed, dictated and finalized at location E. ELGUHR REGENERATOR OPERATOR IMPRESSION: 1. Lung-RADS category 2: Benign appearance or behavior. Continue annual screeni ng with noncontrast low-dose chest CT in 12 months.
== END 2025-11-10 12:59 | disposition home or self-care (01) ==
LOC: MICIMG 12:59
PROVIDERS: PCP Internal Medicine
DX: Z12.2 Encounter for screening for malignant neoplasm of respiratory organs (principal); Z87.891 Personal history of nicotine dependence
CPT/HCPCS: 71271